=== PATIENT | female | born 1985 | race Hispanic/Latino ===

== ENCOUNTER 2021-01-04 05:09 | Emergency (ER) | payer OTHER, SELFPAY ==
--- NOTE | ~2021-01-04 | US_ITS ---
US right upper quadrant INDICATION: Right upper quadrant pain PROCEDURE: Realtime right upper abdominal ultrasound. COMPARISON: No prior studies for comparison. FINDINGS: The pancreas is normal without focal mass or pancreatic ductal dilation. Liver echotexture is normal without focal mass or intrahepatic biliary dilatation. There is normal directional flow i n the portal vein. There is a 4 mm gallbladder polyp. No gallstones, gallbladder wall thickening or pericholecystic flui d. Common bile duct measures 5 mm. No sonographic Haddad's sign. IMPRESSION: 1: Gallbladder polyp measuring 4 mm. Reviewed, dictated and finalized at location A.
[2021-01-04 05:18] VITALS: BP 131/83; PULSE 71; RESP 15; TEMP 36.4; O2SAT 100
[2021-01-04 05:55] LABS: Basophils Absolute Auto 0.1 K/mm3 (0.0-0.1); Basophils Percent Auto 0.8 % (0.2-1.2); Eosinophils Absolute Auto 0.2 K/mm3 (0-0.3); Eosinophils Percent Auto 2.8 % (0-4.4); Hematocrit 38.1 % (37.0-47.0); Hemoglobin 12.7 g/dL (12.0-15.0); Immature Granulocyte Absolute 0.03 K/mm3 (0.00-0.031); Immature Granulocyte Percent A 0.3 % (0-0.5); Lymphocytes Absolute Auto 2.28 K/mm3 (0.9-3.2); Lymphocytes Percent Auto 26.5 % (18.3-44.2); Mean Corpuscular HGB Conc 33.3 g/dl (32-36); Mean Corpuscular Hemoglobin 29.3 pg (26-34); Monocytes Absolute Auto 0.8 K/mm3 (0.1-0.6); Monocytes Percent Auto 8.9 % (2.6-8.5); Neutrophils Absolute Auto 5.2 K/mm3 (1.3-6.7); Neutrophils Percent Auto 60.7 % (45.5-73.1); Platelet Count Result 387 k/mm3 (150-375); Red Blood Count 4.33 M/mm3 (4.2-5.4); Red Cell Distribution Width 12.8 % (11.5-14.5); White Blood Count 8.6 K/mm3 (4.5-10.0)
[2021-01-04 06:00] LABS: Alanine Aminotransferase 61 U/L (4-35); Albumin Level 4.4 g/dL (3.5-5.1); Alkaline Phosphatase 186 U/L (38-126); Anion Gap 10 mmol/L (8-16); Aspartate Amino Transferase 49 U/L (14-36); Bilirubin,Total 0.2 mg/dL (0.2-1.3); Blood Urea Nitrogen 17 mg/dL (7-17); Calcium 9.3 mg/dL (8.4-10.2); Carbon Dioxide 25 mmol/L (22-30); Chloride 102 mmol/L (98-107); Estimated CRCL calculation 94 ml/min; Estimated Glomerular Filt Rate > 60; Glucose 128 mg/dL (65-110); Lipase 148 U/L (23-300); Sodium 137 mmol/L (137-145)
--- NOTE | 2021-01-04 06:00 | ED.ABDPAIN ---
HPI - Abdominal Pain General Chief Complaint: Abdominal Pain <Ziggy Cartwright MD - Last Filed: 01/04/21 06:03> Stated Complaint: stomach pain <Ziggy Cartwright MD - Last Filed: 01/04/21 06:03> History of Present Illness HPI narrative: Patient is a 35-year-old female who presents ER with epigastric pain. Began yesterday. Radiates to her shoulders bilaterally. Associate with nausea and vomiting. No fevers or chills or sweats. No history of gallstones. She tried taking simethicone without relief. <Ziggy Cartwright MD - Last Filed: 01/04/21 06:03> Related Data Allergies/Adverse Reactions: Allergies Allergy/AdvReac Type Severity Reaction Status Date / Time No Known Allergies Allergy Verified 01/04/21 05:24 <Ziggy Cartwright MD - Last Filed: 01/04/21 06:03> Review of Systems Review of Systems: All systems reviewed & are unremarkable except as noted in HPI and below <Ziggy Cartwright MD - Last Filed: 01/04/21 06:03> Constitutional: Constitutional: Denies chills, Denies fever(s) and Denies weakness <Ziggy Cartwright MD - Last Filed: 01/04/21 06:03> ENT: Denies nasal congestion and Denies sore throat <Ziggy Cartwright MD - Last Filed: 01/04/21 06:03> Gastrointestinal: Gastrointestinal: Reports abdominal pain, Denies diarrhea, Reports nausea and Reports vomiting <Ziggy Cartwright MD - Last Filed: 01/04/21 06:03> Genitourinary: Genitourinary: Denies nocturia, Denies dysuria and Denies flank pain <Ziggy Cartwright MD - Last Filed: 01/04/21 06:03> Musculoskeletal: Musculoskeletal: Reports back pain and Denies joint swelling <Ziggy Cartwright MD - Last Filed: 01/04/21 06:03> PMFSH Past Medical History Medical History: Medical History (Updated 01/04/21 @ 11:49 by Carmen Bruno MD) Healthy female adult <Ziggy Cartwright MD - Last Filed: 01/04/21 06:03> Surgical History Surgical History: Surgical History (Updated 01/04/21 @ 06:02 by Ziggy Cartwright MD) No history of previous surgery <Ziggy Cartwright MD - Last Filed: 01/04/21 06:03> Social History Social History: Social History (Updated 01/04/21 @ 06:02 by Ziggy Cartwright MD) Smoking status: Never smoker <Ziggy Cartwright MD - Last Filed: 01/04/21 06:03> Exam Narrative: GENERAL: Well-appearing, well-nourished, and in no acute distress. HEAD: Normocephalic, atraumatic. CHEST: Clear to auscultation. No respiratory distress. HEART: Regular rate and rhythm. Normal peripheral pulses. ABDOMEN: Soft, mild tenderness right upper quadrant and epigastrium without guarding, nondistended. EXTREMITIES: Normal range of motion. No edema. SKIN: Warm, dry, no rash. NEURO: Alert and oriented x3. PSYCH: Normal mood and affect. <Ziggy Cartwright MD - Last Filed: 01/04/21 06:03> Course Reevaluation(s) Reevaluation #1: Assumed care from Dr. Cartwright pending US. <Carmen Bruno MD - Last Filed: 01/04/21 11:56> Date: 01/04/21 <Carmen Bruno MD - Last Filed: 01/04/21 11:56> Time: 07:00 <Carmen Bruno MD - Last Filed: 01/04/21 11:56> Consultations Consultation #1: Discussed with Dr. Nails, who agrees to follow up. <Carmen Bruno MD - Last Filed: 01/04/21 11:56> Date: 01/04/21 <Carmen Bruno MD - Last Filed: 01/04/21 11:56> Time: 11:47 <Carmen Bruno MD - Last Filed: 01/04/21 11:56> Vital Signs Vital signs: Vital Signs Temperature 36.4 C L 01/04/21 05:18 Pulse Rate 71 01/04/21 05:18 Respiratory Rate 15 01/04/21 05:18 Blood Pressure 131/83 01/04/21 05:18 Pulse Oximetry 100 10/03/21 05:18 Temperature 36.4 C L 01/04/21 05:18 Pulse Rate 75 01/04/21 07:22 Respiratory Rate 18 01/04/21 07:22 Blood Pressure 110/69 01/04/21 07:22 Pulse Oximetry 100 01/04/21 07:22 <Ziggy Cartwright MD - Last Filed: 01/04/21 06:03> Vital Signs Temperature 36.4 C L 01/04/21 05:18 Pulse Rate 71 01/04/21 05:18
[2021-01-04 06:13] VITALS: BP 115/64; PULSE 67; RESP 20; O2SAT 99
[2021-01-04] MEDS: KETOROLAC 30 MG/ML VIAL (*BKC) IV PUSH (06:22)
[2021-01-04] MEDS: ONDANSETRON INJ 4 MG/2 ML VIAL IV PUSH (06:23)
[2021-01-04 06:24] LABS: Add Urine Microscopic? YES; Appearance Urine Clear (Clear); Bilirubin Urine Negative (Negative); Blood Urine 2+ (Negative); Color Urine Yellow (Yellow); Glucose Urine UA Negative (Negative); Ketones Urine Negative (Negative); Leukocyte Esterase Ur Negative LEU/UL (Negative); Mucus Urine Rare /lpf; Nitrate Urine Negative (Negative); Protein Urine Negative (Negative); Specific Grav Ur 1.021 (1.001-1.035); Squamous Epithelial Cell Urine Occasional /hpf (Few); Urobilinogen Urine Negative mg/dL (<2.0); WBC Urine 0-3 /hpf
[2021-01-04 07:01] VITALS: BP 97/73; PULSE 67; RESP 16; O2SAT 98
[2021-01-04 07:22] VITALS: BP 110/69; PULSE 75; RESP 18; O2SAT 100
[2021-01-04 12:06] VITALS: BP 102/74; PULSE 66; RESP 16; O2SAT 98
== END 2021-01-04 12:07 | disposition home or self-care (01) ==
PROVIDERS: Emergency Provider Emergency Medicine; PCP Physician Assistant
DX: K82.4 Cholesterolosis of gallbladder (principal); R10.11 Right upper quadrant pain
CPT/HCPCS: 36415; 76705; 80053; 81001; 81025; 83690; 85025; 96374; 96375; 99284; J1885; J2405

== ENCOUNTER 2021-03-13 13:50 | Outpatient (CLI) | payer OTHER, SELFPAY ==
[2021-03-13 14:39] LABS: Alanine Aminotransferase 33 U/L (4-35); Albumin Level 4.7 g/dL (3.5-5.1); Alkaline Phosphatase 102 U/L (38-126); Amylase 88 U/L (30-110); Aspartate Amino Transferase 42 U/L (14-36); Bilirubin,Total 0.5 mg/dL (0.2-1.3); Lipase 113 U/L (23-300)
== END 2021-03-13 13:51 | disposition home or self-care (01) ==
PROVIDERS: PCP Physician Assistant; Visit Provider Surgery
DX: Z01.812 Encounter for preprocedural laboratory examination (principal); K82.4 Cholesterolosis of gallbladder
CPT/HCPCS: 36415; 80076; 82150; 83690; 86850; 86900; 86901

== ENCOUNTER 2021-03-18 02:32 | Day surgery (SDC) | payer OTHER, SELFPAY ==
[2021-03-10 10:49] VITALS: BMI 23.7
--- NOTE | 2021-03-10 11:00 | PC.NURSE ---
Report to the Outpatient Waiting Room, entrance under the green pavilion located off [facility], at time 11:30 on date 03/18/21. OR Time: 1:30. - You and your visitor will be asked a series of questions to screen for COVID 19 for your protection. - A mask is required within the hospital. - Only one visitor is allowed at this time. Patient visitors will be guided where to wait when not with patient. Preoperative COVID Testing Requirements: No COVID Test needed if: (proof is required; if not received patient will have Rapid Test prior to entry) - Patient has received COVID Vaccine at least 14 days prior to procedure date or - Patient has positive COVID test result within last 90 days of surgery date. COVID Test needed if above criteria is not met If not COVID vaccinated a COVID test must be conducted within 72 hours of surgery and patient is asked to isolate self from time of testing until procedure. You will go to the [employer] [facility] for your COVID testing. The [employer] [facility] is located at the corner of [address] [facility]. You will only be called if COVID results are positive and your surgeon may reschedule your elective surgery date. Patients may have clear liquids (water, carbonated beverages, clear teas, apple juice) until 3 hours prior to surgery with a maximum of 20 ounces. - No food from midnight until time of surgery - Infants may have breast milk until 4 hours before surgery, infant formula 6 hours prior to surgery. - Children will be allowed to drink immediately following surgery. If applicable, please bring a bottle or sippy cup to assist with drinking. Juice, water, soda, and popsicles are readily available. For infants on formula, please bring formula the day of surgery. Pacifiers are allowed. Take the following medications with a SIP of water the morning of surgery: LEXAPRO Medications to discontinue per physician: VITAMINS Date to take last dose: 03/14/21 Please no make-up, nail [place], hairspray, perfume, deodorant, or body powder the day of surgery. No jewelry (including any body piercings) or valuables the day of surgery, leave them at home. Please take a shower or bath the night before, or the morning of, surgery with an antibacterial soap. Wear comfortable, loose fitting clothing. Children are encouraged to wear pajamas. HIBICLENS SHOWER - Jewelry must be removed prior to entering the operating room. Rings and piercings that are not removed may be cut off. - The hospital will not accept responsibility for valuables. - Please leave all valuables, including medications, at home the day of surgery. If you are going home after surgery, a licensed service parts driver must drive you home. - NO public transportation without another adult. - We recommend that an adult stay with you for 24 hours following discharge. - We also recommend that you do not drive, make important decision, drink alcoholic beverages, or take any drugs that were not prescribed by your health care provider for at least 24 hours after your discharge time. For Pediatric surgeries, we recommend two adults accompany the child home (only one inside the building at this time). Follow any additional instructions given to you from your surgeon. Telephone instructions given to GEOFFREY FITCH and asked if any additional questions and then verbalized understanding. Patient advised to call surgeon office or pre surgery nurse liaison [phone] if any additional questions.
[2021-03-18] VITALS (10 sets, daily range): BP systolic 96–122; BP diastolic 66–77; PULSE 66–89; RESP 11–18; TEMP 36.1–37.2; O2SAT 96–100
[2021-03-18] MEDS: LACTATED RINGERS 1,000 ML 30 ML IV CONT ×2 (12:15→14:56)
[2021-03-18] MEDS: ACETAMINOPHEN 500 MG TABLET 1000 MG PO (12:19)
[2021-03-18] MEDS: KETOROLAC 15 MG/ML VIAL (*BKC) IV PUSH (12:20)
--- NOTE | 2021-03-18 12:33 | WPDANESEPPF ---
Anes - Initial Pre Proc Eval Procedure: Operation Date: 03/18/21 13:30 Proposed Procedures p Laparoscopic Cholecystectomy, Possible Open - Jaren Nails DO Date/Time: 03/18/21 12:33 Surgeon: Jaren Nails DO Pre Op Diagnosis: gallbladder polyp, RUQ abd pain Patient Data Age: 35 Gender: F Height: 1.6 m Weight: 60 kg Last Vital Signs Temp 36.1 C L 03/18/21 11:59 Pulse 66 03/18/21 11:59 Resp 16 03/18/21 11:59 BP 108/69 03/18/21 11:59 Pulse Ox 100 03/18/21 11:59 Allergies Allergy/AdvReac Type Severity Reaction Status Date / Time No Known Allergies Allergy Verified 03/18/21 11:58 Home Medications Medication Instructions Recorded Confirmed Type escitalopram oxalate 10 mg tablet 10 mg PO DAILY 01/07/21 03/18/21 History multivitamin 1 tablet PO DAILY 01/07/21 03/18/21 History Patient hx anesthesia problems: none Family hx anesthesia problems: none Results Review: All pre-operative results and documents have been reviewed as part of the pre-operative evaluation. [facility] Past Medical History Medical History (Updated 03/18/21 @ 12:33 by Tad Mcclelland MD) History of depression Surgical History Surgical History No history of previous surgery Family History Family History Son No problems noted. Social History Social History Years smoked: 1 Smoking status: Never smoker Tobacco type: cigarettes Smoking end date: 04/04/10 Alcohol intake: former Substance use: never Substance use type: does not use Living arrangements: with family Additional living arrangements comments: WITH SON Gender identity (if verbalized by the patient): Female Spiritual care concerns: No Anes - Eval Final PreProcedure Day of Procedure 03/18/21 12:33 Patient weight: normal Heart: regular rate and rhythm Lungs: clear to auscultation Airway: Mallampati scale class II Neurological: alert and oriented Last oral intake: >/= 8 hours ASA classification: II Emergent: no Anesthetic plan: proceed Anesthesia type and monitoring: general ETT and standard monitoring Results Review: All pre-operative results and documents have been reviewed as part of the pre-operative evaluation. Informed Consent: The patient's anesthetic plan and its attendant risks and benefits were discussed with the patient/family/POA. Questions were solicited and answers provided to the satisfaction of the patient/family/POA.
--- NOTE | 2021-03-18 13:29 | WPDHPUPDATE1 ---
History and Physical Update Update Date/Time: 03/18/21 13:29 History and Physical has been reviewed, including an updated exam of the patient. There are NO changes in the patient's condition. Risks, benefits, and alternatives have been discussed and questions answered. Patient agrees to proceed with procedure.
[2021-03-18] MEDS: ceFAZolin 2 GM/D5W 50 ML 2 GM/50 ML BAG IVPB (13:49)
[2021-03-18] MEDS: BUPIVACAINE HCL 0.5% PF 30 ML VIAL INFILTRATE (14:20)
--- NOTE | 2021-03-18 14:46 | W.PM.PROC2 ---
Procedure Note - Detailed Date of Procedure 03/18/21 Pre-op Diagnosis gallbladder polyp, RUQ abd pain Post-op Diagnosis same Procedure Performed Laparoscopic cholecystectomy Surgeon Jaren Nails DO Anesthesia general and local (0.5% bupivacaine) Indications This is a 35-year-old woman who presented with epigastric and right upper quadrant pain that started about 2 months ago. She had previously gone to the emergency department on 01/04/2021 and a gallbladder ultrasound showed evidence of a gallbladder polyp. She had slightly elevated liver enzymes, but these have since normalized. Discussions were made with the patient about treatment options and decision was made to proceed with laparoscopic cholecystectomy, possible open. Findings Laparoscopic cholecystectomy was performed. The patient was found to have multiple pericholecystic adhesions. The cystic duct appeared normal in size. No palpable stones were noted within the gallbladder. Otherwise the abdomen appeared grossly normal. The gallbladder was removed and sent to the lab for pathology. Description of Procedure Procedure as well as risks, benefits, and alternatives were discussed with patient. Written consent was obtained and placed in chart prior to procedure. The patient was brought back to surgical suite. Patient was placed in supine position on operating table. Time-out was done to confirm patient and procedure. Patient was then intubated by the anesthesia department. Abdomen was prepped and draped in sterile fashion using chlorhexidine prep. 0.5% bupivacaine with epinephrine was infiltrated at each site of incision. An 11 millimeter vertical incision was made at the inferior portion of the umbilicus using a 15 blade scalpel. Blunt dissection was carried down to the linea alba. The linea alba was then incised using a 15 blade scalpel. The peritoneum was then bluntly entered. An 11 millimeter trocar was inserted and carbon dioxide insufflation was used to create a pneumoperitoneum. The camera was inserted and the abdomen was inspected. The patient was placed in reverse Trendelenberg position and rotated slightly to the left. A 5 millimeter incision was made in the epigastric region, and a 5 millimeter trocar was inserted under direct visualization. Two 5 millimeter incisions were made in the right upper quadrant, and two 5 millimeter trocars were inserted under direct visualization. The gallbladder was identified and grasped at the fundus and retracted superiorly. It was then grasped at the infundibulum retracted laterally. Careful dissection around the neck of the gallbladder was performed using blunt dissection with a [place] grasper and hook electrocautery. The cystic duct was identified, and a window was created behind it. The cystic artery was also identified and a window was created behind it. The critical view of safety was identified, visualizing the cystic duct running directly into the neck of the gallbladder, and the cystic artery running directly into the wall of the gallbladder. A 5 millimeter clip tennis camp instructor was then used to place 2 clips proximally and 1 clip distally on both the cystic duct and cystic artery. They were then both transected using endoscopic scissors. Once safely away from the devyn hepatitis, the gallbladder was dissected free from the liver bed using hook electrocautery. Hemostasis was achieved along the way. The gallbladder was removed completely and then removed through the umbilical port. The liver bed was then inspected. Hemostasis appeared adequate, and our clips appeared secure. The area was gently irrigated with sterile saline. No other abnormalities were seen. The patient was flattened out in bed, and 1 final inspection was made around the abdominal cavity. The ports were then removed under direct visualization, the camera was removed, and the pneumoperitoneum was released. The fascia of the umbilical incision was approximated using a
[2021-03-18] MEDS: fentaNYL CITRATE INJ (*CRX) 100 MCG/2 ML VIAL 25 MCG IV PUSH ×3 (16:02→16:09)
[2021-03-18] MEDS: oxyCODONE HCL (*CRX) 5 MG TAB IR PO (16:59)
== END 2021-03-18 17:35 | disposition home or self-care (01) ==
PROVIDERS: PCP Physician Assistant; Visit Provider Surgery
PROC: 0FT44ZZ Resection of Gallbladder, Percutaneous Endoscopic Approach (ICD-10-PCS; CPT 47562; principal; 2021-03-18 13:30)
DX: K81.1 Chronic cholecystitis (principal); F32.9 Major depressive disorder, single episode, unspecified; Z87.891 Personal history of nicotine dependence
CPT/HCPCS: 47562; 88304; A9270; J0690; J1100; J1885; J2250; J2405; J2704; J2710; J3010; J7030; J7120

== ENCOUNTER → 2024-10-04 10:53 | Outpatient (CLI) | payer OTHER, SELFPAY ==
--- NOTE | ~2024-10-04 | XR_ITS ---
XR wrist RT min 3V Ordering provider: Isadora Abarca, MYLA History: . RT WRIST PAIN,NKI . Comparison: None. FINDINGS: BONES: No acute fracture or dislocation. No definite scaphoid fracture. JOINT SPACES: Normal. SOFT TISSUES: Normal. IMPRESSION: No acute osseous abnormality right wrist. Reviewed, dictated and finalized at location A.
== END ==
PROVIDERS: PCP Physician Assistant; Visit Provider Physician Assistant
DX: M25.531 Pain in right wrist (principal)
CPT/HCPCS: 73110

== ENCOUNTER 2024-12-18 06:34 | Emergency (ER) | payer OTHER, SELFPAY ==
[2024-12-18] VITALS (7 sets, daily range): BP systolic 102–127; BP diastolic 60–77; PULSE 64–83; RESP 15–20; TEMP 36.8; O2SAT 97–99
--- NOTE | ~2024-12-18 | CT_ITS ---
EXAM: CT lumbar spine wo con - 12/18/2024 7:40 CDT History: 39 years old Female with Nontraumatic lower back pain Comparison None Technique Thin helical images obtained without intravenous contrast according to standard protocol. Coronal and sagittal reformatted images are provided. Findings No fracture or gross subluxation is appreciated. Alignment is satisfactory. No intraspinal or paraspinal mass or hematoma appreciated. No significant lesion of the visualized airway or lungs. No gross mass or adenopathy identified, considering lack of IV contrast for this exam. Impression: 1. No acute abnormality of the lumbar spine detected by CT. Reviewed, dictated and finalized at location N. Impression: 1. No acute abnormality of the lumbar spine detected by CT.
--- NOTE | 2024-12-18 07:15 | ED.BACK ---
HPI - Back Pain/Injury General Chief Complaint: Back Pain/Injury Stated Complaint: lower back pain Time Seen by Provider: 12/18/24 07:12 Source: patient Mode of arrival: ambulatory Limitations: no limitations History of Present Illness HPI Narrative: 39 years old female came to the ED by ambulance from home complaining of right lower quadrant pain radiating to right lower extremity, dull aching, worse with certain position and movement, she denies any recent trauma, fever, chills, nausea, vomiting, tingling, numbness or urinary symptoms. Patient is telling me that she have a right shoulder and right upper back pain secondary to injury Two [age] [birth year], currently on workman's comp, had cortisone injection of the right shoulder and upper back, went back to work for the 1st time yesterday after the injury in October, woke up this morning with right lower back pain. Related Data Home Medications ?Medication ?Instructions ?Recorded ?Confirmed ?Last Taken ?Type escitalopram oxalate 10 mg tablet 10 mg PO DAILY 01/07/21 12/18/24 Unknown History (Lexapro) multivitamin 1 tablet PO DAILY 01/07/21 04/10/21 Unknown History Allergies Allergy/AdvReac Type Severity Reaction Status Date / Time No Known Allergies Allergy Verified 12/18/24 06:40 Review of Systems Review of Systems: All systems reviewed & are unremarkable except as noted in HPI and below PMFSH Past Medical History Medical History History of depression Surgical History Surgical History Hx laparoscopic cholecystectomy 03/18/22 Family History Family History Son No problems noted. Social History Social History Years smoked: 1 Smoking status: Former smoker Tobacco type: cigarettes Smoking end date: 04/04/10 Alcohol intake: never Substance use: never Substance use type: does not use Living arrangements: with family Additional living arrangements comments: WITH SON Gender identity (if verbalized by the patient): Female Spiritual care concerns: No Exam Narrative: General appearance: Well-developed, well-nourished Skin: Normal color Head: Normocephalic, nontraumatic Eyes: Clear conjunctiva ENT: Oropharynx normal, ears normal, nose normal Neck: Supple, nontender Chest and respiratory: Airway patent, no respiratory distress, no accessory muscle use Heart: Regular rate/rhythm Abdomen: Soft, nontender, no organomegaly, quiet bowel sounds Vascular: Normal peripheral pulses, normal capillary refill. Musculoskeletal: Diffuse tenderness right lower back, midthoracic, mid lumbar, no bruises, no swelling, no rash, pain worse with right hip flexion and extension. 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, no gross motor deficit , negative straight leg raising test bilaterally Course Vital Signs Vital signs: Vital Signs Temperature 36.8 C 12/18/24 06:36 Pulse Rate 83 12/18/24 06:36 Respiratory Rate 16 12/18/24 06:36 Blood Pressure 105/75 12/18/24 06:36 Pulse Oximetry 99 12/18/24 06:36 Oxygen Delivery Room Air 12/18/24 06:36 Temperature 36.8 C 12/18/24 06:36 Pulse Rate 71 12/18/24 08:56 Respiratory Rate 15 12/18/24 08:56 Blood Pressure 102/60 12/18/24 08:56 Pulse Oximetry 99 12/18/24 08:56 Oxygen Delivery Room Air 12/18/24 06:36 MDM - Back Pain/Injury MDM Narrative Medical decision making narrative: workup with right lower back pain Vital signs are stable Physical examination showing tenderness right lower back . Differential diagnose musculoskeletal, urinary tract infection CT lumbar spine showed no acute abnormality Urinalysis showed no significant evidence of infection or other abnormality Diagnosis lower back pain Discharged on naproxen, cyclobenzaprine, follow-up with workmen's Comp for further evaluation Differential Diagnosis Differential diagnosis: Likely other ( as above) Lab Data Attestation: I reviewed the patient's lab results. Labs: Lab Results 12/18/24 Range/Units 08:55 Urine Color Yellow (Yellow) Urine Appearance Clear (Clear) Urine pH 7.5 (5.0-9.0) Ur Specific [place] 1.014 (1.001-1.035) Urine Protein Negative (Negative) mg/dL Urine Glucose (UA) Negative (Negative) mg/dL Urine Ketones Negative (Negative) mg/dL Ur Blood (Man) Negative (Negative) Urine Nitrate Negative (Negative) Urine Bilirubin Negative (Negative) Urine Urobilinogen 0.2 (<2.0) mg/dL Leukocyte Esterase Rfl Negative (Negative) ONIEL/UL POC Urine HCG, Qual Negative (Negative) Imaging Data Radiologist's impression: Impressions Lumbar Spine CT 12/18/24 08:07 Impression: 1. No acute abnormality of the lumbar spine detected by CT. Critical Care Time Critical Care Time Critical Care Time: No Discharge Plan Discharge Clinical Impression: Lower back pain Patient Disposition: Home Condition: Stable Instructions: Acute Low Back Pain (ED) Additional Instructions: Return if symptoms are worsening , call your family physician for appointment, take Tylenol as as needed for aches and pain, continue home medications. Massage Heating pad Lower back exercise Call workman's Comp for further evaluation Patient Language: [place] Prescriptions: New naproxen [Naprosyn] 500 mg tablet 500 mg PO BID PRN (Reason: pain) Qty: 14 0RF cyclobenzaprine 10 mg tablet 10 mg PO TID PRN (Reason: muscle spasm) Qty: 20 0RF No Action escitalopram oxalate [Lexapro] 10 mg tablet 10 mg PO DAILY multivitamin Tablet 1 tablet PO DAILY Follow-up/Referrals: Rima,MYLA Muir [Primary Care Provider, Unknown] Stand Alone Forms: Work/School Release IP
[2024-12-18] MEDS: KETOROLAC (*BKC) 60 MG/2 ML VIAL IM (08:46)
[2024-12-18] MEDS: diazePAM (*CRX) 5 MG TABLET PO (08:47)
[2024-12-18 08:57] LABS: BEDSIDEPREGUCG Negative (Negative)
[2024-12-18 09:01] LABS: Add Urine Microscopic? NO; Appearance Urine Clear (Clear); Glucose Urine UA Negative (Negative); Leukocyte Esterase Ur Negative LEU/UL (Negative); Nitrate Urine Negative (Negative); Specific Grav Ur 1.014 (1.001-1.035)
== END 2024-12-18 10:28 | disposition home or self-care (01) ==
PROVIDERS: Emergency Provider Emergency Medicine; PCP Physician Assistant
DX: M54.50 Low back pain, unspecified (principal); F32.A Depression, unspecified; Z87.891 Personal history of nicotine dependence; Z90.49 Acquired absence of other specified parts of digestive tract; Z79.899 Other long term (current) drug therapy
CPT/HCPCS: 72131; 81003; 81025; 96372; 99284; A9270; J1885